=== PATIENT | male | born 1965 | race Caucasian/White ===

== ENCOUNTER 2019-04-19 05:49 | Day surgery (SDC) | payer BC ==
[2019-04-18 11:40] VITALS: BMI 32.3
[2019-04-19] MEDS ORDERED: Midazolam HCl 2 mg/2 ml Vial ONE (06:37)
[2019-04-19] MEDS ORDERED: Fentanyl 100 MCG/2 ML VIAL ONE ×2 (06:37→07:12)
[2019-04-19] MEDS ORDERED: Lidocaine 1% (PF) 30 ML VIAL ONE (06:37)
[2019-04-19 06:42] LABS: #Basophils 0.1 thou/uL (0.0-0.2); #Eosinphils 0.5 thou/uL (0.0-0.7); #Lymphocytes 2.1 thou/uL (1.20-3.40); #Monocytes 0.7 thou/uL (0.11-0.59); #Neutrophils 3.8 thou/uL (1.40-6.50); %Basophils 1.6 % (0.0-1.0); %Eosinophils 6.7 % (0.0-10.0); %Lymphocytes 29.3 % (21.0-51.0); %Monocytes 9.9 % (0.0-10.0); %Neutrophils 52.6 % (42.0-75.0); Hemoglobin 14.8 g/dL (14.0-18.0); Mean Corpuscular HGB CONC 33.9 g/dL (32.0-36.0); Mean Corpuscular Hemoglobin 32.4 pg (27.0-31.0); Mean Corpuscular Volume 95.6 fL (78.0-98.0); Mean Platelet Volume 7.8 fL (7.4-10.4); Platelet Count 217 thou/uL (130-400); RBC Distribution Width 12.1 % (11.5-14.5); Red Blood Cell (RBC) Count 4.56 mill/uL (4.70-6.10); White Blood Cell (WBC) Count 7.2 thou/uL (4.8-10.8)
[2019-04-19] MEDS ORDERED: Lidocaine 1% w/Epinephrine 1:100K 20 ML VIAL ONE (06:54)
[2019-04-19 06:55] LABS: Anion Gap 11 mmol/L (10-20); BUN (Urea Nitrogen) 20 mg/dL (8.4-25.7); Calc. Creatinine Clearance 142 mL/min (70-130); Calcium 9.3 mg/dL (7.8-10.44); Carbon Dioxide 24 mmol/L (22-29); Chloride 109 mmol/L (98-107); Estimated GFR-MDRD Greater than 90; Glucose 109 mg/dL (70-105); Sodium 140 mmol/L (136-145)
[2019-04-19] MEDS ORDERED: HYDROmorphone 0.5 MG/0.5 ML SYRINGE ONE (07:12)
[2019-04-19] MEDS ORDERED: Acetaminophen 325 MG TAB PO PRN (07:21)
[2019-04-19] MEDS ORDERED: Promethazine HCl 25 MG/ML VIAL IM PRN (07:21)
[2019-04-19] MEDS ORDERED: Ropivacaine 0.2% 550 ML 550 ML NERVE BLCK SCH (07:21)
[2019-04-19] MEDS ORDERED: Zolpidem Tartrate 5 MG TAB PO PRN (07:21)
[2019-04-19] MEDS ORDERED: HYDROcodone/Acetaminophen 10/325 mg Tablet PO PRN ×2 (07:21)
[2019-04-19] MEDS ORDERED: Ondansetron PF 4 MG/2 ML Vial IVP PRN (07:21)
[2019-04-19] MEDS ORDERED: traMADol HCl 50 MG TAB PO PRN ×2 (07:21)
[2019-04-19] MEDS ORDERED: Fentanyl 100 MCG/2 ML VIAL IV PRN (07:23)
[2019-04-19] MEDS ORDERED: Glycopyrrolate 0.2 MG/ML 5 ML SYRINGE ONE (09:57)
[2019-04-19] MEDS ORDERED: Ropivacaine 0.5% HCl/PF (150 MG/30 ML VIAL) ONE (09:57)
[2019-04-19] MEDS ORDERED: PROPOFOL 200 MG/20 ML VIAL ONE (09:57)
[2019-04-19] MEDS ORDERED: Lidocaine 1% PF 5 ML VIAL ONE (09:57)
[2019-04-19] MEDS ORDERED: Ondansetron PF 4 MG/2 ML Vial ONE (09:57)
[2019-04-19] MEDS ORDERED: Ropivacaine 0.2% HCl/PF (40 MG/20 ML VIAL) ONE (09:57)
[2019-04-19] MEDS ORDERED: EPHEDRINE 25 MG/5 ML SYRINGE ONE (09:57)
[2019-04-19] MEDS ORDERED: Rocuronium Bromide 10 MG/ML (10ML VIAL) ONE (09:57)
[2019-04-19] MEDS ORDERED: Ketorolac Tromethamine 30 MG/ML VIAL ONE (09:57)
[2019-04-19] MEDS ORDERED: Dexamethasone 20 MG/5 ML VIAL ONE (09:57)
--- NOTE | 2019-04-19 10:02 | OP ---
DATE OF PROCEDURE: 04/19/2019 PREOPERATIVE DIAGNOSES: Right shoulder impingement and rotator cuff tear and biceps tendon tear. POSTOPERATIVE DIAGNOSES: Right shoulder impingement and rotator cuff tear and biceps tendon tear. PROCEDURES PERFORMED: 1. Right shoulder arthroscopy with subacromial decompression. 2. Arthroscopic rotator cuff repair. 3. Open biceps tenodesis. HISTOLOGIST: Daniel Harrington PA-C ESTIMATED BLOOD LOSS: Approximately 50 mL. COMPLICATIONS: None. ANESTHESIA: He had a general anesthetic. DISPOSITION: He went to recovery room in stable condition. IMPLANTS: Our implants, one triple-loaded Titanium rotator cuff anchor and a 7 x 23 BioComposite Bio-Tenodesis screw. INDICATIONS: This is a 53-year-old male, who comes in complaining of weakness and pain. MRI found him to have full-thickness tear and at this time, he opted to have this repaired. DESCRIPTION OF PROCEDURE: After all appropriate consent forms were explained and signed, he was taken back to the operating room and at this time was given general anesthetic. Once the level of anesthesia was appropriate, the patient was rolled into the left lateral decubitus position with all bony prominences well padded. Axillary roll was placed underneath the left axilla. The beanbag was inflated to hold this position. The arm was taken through full range of motion and then held with an arthroscopic esqueda with 15 pounds in standard fashion. At this time, the right shoulder and upper extremity was prepped and draped in standard surgical fashion. Bony anatomical landmarks were drawn out and the subacromial space was infiltrated with Marcaine with epinephrine. Posterior portal was established. Scope was placed into the shoulder joint. Anterior working portal was then made using a needle localization technique. Diagnostic arthroscopy commenced. Biceps tendon was found to be torn. Rotator cuff was found to be torn. Subscapularis was intact. There were no loose bodies in the axillary pouch. Articular surfaces of the humeral head and glenoid were in good condition and the labrum overall was in good condition. At this time, an 18-gauge needle was used to place the stitch through the biceps and the biceps was cut off its insertion with the SERFAS energy. SERFAS energy was also used to coagulate some significant synovitis between the superior labrum and the cuff superiorly. At this time, we then repositioned our scope into the subacromial space. Lateral working portal was made. A little bit of bursa was there and this was removed. This gave us access to the rotator cuff tear. PassPort cannula was placed lateral. We then placed one triple-loaded Titanium anchor into the bone as we felt a single row would suffice on the small tear. At this time, the Scorpion device was used to place 2 simple stitches and one mattress stitch posteriorly for the repair. These were then tied sequentially. All these knots were cut. At this time, we then removed the scope, drained the shoulder. We then made our incision for open biceps tenodesis. The skin was cut with a 15 blade. Bovie was used to coagulate any brisk venous bleeding. Deltoid fascia was opened sharply. Finger dissection was used in line with the fibers to get down to the underlying bicipital groove. Transverse humeral ligament was opened up. Biceps tendon was pulled out into the wound. All brisk venous bleeding was coagulated. The biceps tendon was sewed. The intra-articular portion was removed. We then placed our wire, reamed with a 7.5 reamer to a depth of 25 and placed our 7 x 23 BioComposite Bio-Tenodesis screw. Sutures were tied over top of this as the screw could not back out. At this time, the wound was then thoroughly irrigated and dried. The deltoid fascia was closed with Vicryl, 2-0 Vicryl and stitches were used to close this incision as well as our portals. Bulky sterile dressing was applied. The patient was awakened, taken to the recovery room in stable condition. All counts were correct at the end of the case and he did receive preoperative IV antibiotics. Job ID: [id number]
[2019-04-19] MEDS ORDERED: Ketorolac Tromethamine 30 MG/ML VIAL IVP SCH (12:00)
== END 2019-04-19 12:10 | disposition home or self-care (01) ==
LOC: EEVIPCON 05:49 → SDC 05:49
PROVIDERS: ATTEND Orthopaedic Surgery
PROC: 0LS14ZZ Reposition Right Shoulder Tendon, Percutaneous Endoscopic Approach (ICD-10-PCS; principal; 2019-04-19)
PROC: 0LQ14ZZ Repair Right Shoulder Tendon, Percutaneous Endoscopic Approach (ICD-10-PCS; principal; 2019-04-19)
PROC: 0RNJ4ZZ Release Right Shoulder Joint, Percutaneous Endoscopic Approach (ICD-10-PCS; principal; 2019-04-19)
DX: M75.121 Complete rotator cuff tear or rupture of right shoulder, not specified as traumatic (principal); M75.41 Impingement syndrome of right shoulder; S46.111A Strain of muscle, fascia and tendon of long head of biceps, right arm, initial encounter; Z98.890 Other specified postprocedural states; Z79.899 Other long term (current) drug therapy
CPT/HCPCS: 80048; 85025; A4306; C1713; J0690; J1100; J1170; J1885; J2001; J2250; J2405; J2704; J2795; J3010

== ENCOUNTER 2021-07-30 16:13 | Inpatient (IN) | payer OTHER, BC ==
[~2021-07-30 16:13] MED LIST: Iopamidol-370 76% 500 ML 1 ML ONE
[2021-07-30] MEDS ORDERED: Fentanyl 100 MCG/2 ML VIAL ONE (16:25)
[2021-07-30] MEDS ORDERED: Ondansetron PF 4 MG/2 ML Vial ONE (16:25)
[2021-07-30 17:02] LABS: #Basophils 0.1 thou/uL (0.0-0.2); #Lymphocytes 1.6 thou/uL (1.20-3.40); #Neutrophils 11.1 thou/uL (1.40-6.50); %Basophils 0.6 % (0.0-1.0); %Eosinophils 0.3 % (0.0-10.0); %Lymphocytes 11.3 % (21.0-51.0); %Monocytes 7.3 % (0.0-10.0); %Neutrophils 80.5 % (42.0-75.0); Hemoglobin 14.8 g/dL (14.0-18.0); Mean Corpuscular HGB CONC 32.5 g/dL (32.0-36.0); Mean Corpuscular Hemoglobin 31.4 pg (27.0-31.0); Mean Corpuscular Volume 96.7 fL (78.0-98.0); Mean Platelet Volume 8.7 fL (7.4-10.4); Platelet Count 209 thou/uL (130-400); RBC Distribution Width 12.4 % (11.5-14.5); Red Blood Cell (RBC) Count 4.71 mill/uL (4.70-6.10); White Blood Cell (WBC) Count 13.8 thou/uL (4.8-10.8)
[2021-07-30 17:13] LABS: Prothrombin Time 13.5 sec (12.0-14.7)
[2021-07-30 17:14] LABS: PTT 22.2 sec (22.9-36.1)
[2021-07-30 17:30] LABS: ALT (SGPT) 20 U/L (8-55); AST (SGOT) 16 U/L (5-34); Albumin 4.1 g/dL (3.5-5.0); Alkaline Phosphatase 52 U/L (40-110); Anion Gap 16 mmol/L (10-20); BUN (Urea Nitrogen) 26 mg/dL (8.4-25.7); Bilirubin, Total 0.5 mg/dL (0.2-1.2); Calc. Creatinine Clearance 0 mL/min (70-130); Calcium 9.5 mg/dL (7.8-10.44); Carbon Dioxide 21 mmol/L (22-29); Chloride 111 mmol/L (98-107); Globulin 2.9 g/dL (2.4-3.5); Glucose 193 mg/dL (70-105); Potassium 3.8 mmol/L (3.5-5.1); Sodium 144 mmol/L (136-145)
[2021-07-30] MEDS ORDERED: Morphine 4 MG/ML VIAL ONE ×2 (17:36→19:07)
[2021-07-30] MEDS ORDERED: Ondansetron PF 4 MG/2 ML Vial IVP PRN (19:14)
[2021-07-30] MEDS ORDERED: Dextrose 50% Abboject 50 ML SYRINGE SLOW IVP PRN (19:14)
[2021-07-30] MEDS ORDERED: Dextrose 5% in Water 1,000 ML IV PRN (19:14)
[2021-07-30] MEDS ORDERED: Morphine 4 MG/ML VIAL SLOW IVP PRN (19:14)
[2021-07-30] MEDS ORDERED: hydrALAZINE 20 MG/ML VIAL SLOW IVP PRN (19:14)
[2021-07-30] MEDS ORDERED: traMADol HCl 50 MG TAB PO PRN (19:20)
[2021-07-30] MEDS ORDERED: Famotidine 20 MG TAB PO SCH (21:00)
[2021-07-30] MEDS: Lactated Ringer's 1,000 ML IV SCH (21:00)
[2021-07-30] MEDS ORDERED: CEFAZOLIN 2 GM in Sodium Chloride 0.9% 100 ML IVPB SCH (21:15)
[2021-07-30] MEDS: Ibuprofen 200 MG TAB PO SCH (21:43)
[2021-07-30] MEDS: Acetaminophen 500 MG TAB PO SCH (21:44)
[2021-07-30] MEDS: Gabapentin 300 MG CAP PO SCH (21:45)
[2021-07-30] MEDS: traMADol HCl 50 MG TAB PO SCH (21:45)
[2021-07-30] MEDS: Cyclobenzaprine 10 MG TAB PO PRN (21:46)
[2021-07-30 22:41] VITALS: BMI 33.1
[2021-07-31 01:23] LABS: SARS-CoV-2 NAA Rapid Test Not Detected (NotDetected)
[2021-07-31] MEDS: Lactated Ringer's 1,000 ML IV SCH ×2 (02:53→07:32)
[2021-07-31] MEDS: Acetaminophen 500 MG TAB PO SCH ×4 (02:53→20:39)
[2021-07-31] MEDS: traMADol HCl 50 MG TAB PO SCH ×4 (02:54→20:38)
[2021-07-31] MEDS: Ibuprofen 200 MG TAB PO SCH ×4 (02:55→20:36)
[2021-07-31 06:18] LABS: #Lymphocytes 1.9 thou/uL (1.20-3.40); #Monocytes 1.1 thou/uL (0.11-0.59); #Neutrophils 6.8 thou/uL (1.40-6.50); %Basophils 0.3 % (0.0-1.0); %Eosinophils 0.4 % (0.0-10.0); %Monocytes 11.5 % (0.0-10.0); %Neutrophils 68.8 % (42.0-75.0); Hemoglobin 11.4 g/dL (14.0-18.0); Mean Corpuscular HGB CONC 32.4 g/dL (32.0-36.0); Mean Corpuscular Hemoglobin 32.1 pg (27.0-31.0); Mean Corpuscular Volume 99.1 fL (78.0-98.0); Mean Platelet Volume 8.3 fL (7.4-10.4); Platelet Count 146 thou/uL (130-400); RBC Distribution Width 12.5 % (11.5-14.5); Red Blood Cell (RBC) Count 3.54 mill/uL (4.70-6.10); White Blood Cell (WBC) Count 9.9 thou/uL (4.8-10.8)
[2021-07-31 06:40] LABS: Anion Gap 11 mmol/L (10-20); BUN (Urea Nitrogen) 18 mg/dL (8.4-25.7); Calc. Creatinine Clearance 138 mL/min (70-130); Carbon Dioxide 25 mmol/L (22-29); Chloride 109 mmol/L (98-107); Glucose 102 mg/dL (70-105); Magnesium 2.2 mg/dL (1.6-2.6); Phosphorus 4.1 mg/dL (2.3-4.7); Potassium 3.6 mmol/L (3.5-5.1); Sodium 141 mmol/L (136-145)
[2021-07-31] MEDS: Gabapentin 300 MG CAP PO SCH ×3 (07:24→20:38)
[2021-07-31] MEDS ORDERED: HYDROmorphone 2 MG/ML VIAL ONE ×2 (07:32→11:28)
[2021-07-31] MEDS ORDERED: fentaNYL Citrate/PF 100 MCG/2 ML SYRINGE ONE (07:36)
[2021-07-31] MEDS ORDERED: Sodium Chloride 0.9% 100 ML ONE (07:54)
[2021-07-31] MEDS ORDERED: CEFAZOLIN 2 GM VIAL ONE (07:54)
[2021-07-31] MEDS ORDERED: SUGAMMADEX SODIUM 200 MG/2 ML VIAL ONE (08:22)
[2021-07-31] MEDS ORDERED: PROPOFOL 200 MG/20 ML VIAL ONE (08:25)
[2021-07-31] MEDS ORDERED: Lidocaine 1% PF 5 ML VIAL ONE (08:25)
[2021-07-31] MEDS ORDERED: PHENYLEPHRINE-NS 100 MCG/ML 10 ML SYRINGE ONE (08:25)
[2021-07-31] MEDS ORDERED: ePHEDrine 50 MG/ML VIAL ONE (08:25)
[2021-07-31] MEDS ORDERED: Glycopyrrolate 0.2 MG/ML 5 ML SYRINGE ONE (08:25)
[2021-07-31] MEDS ORDERED: Vecuronium 10 MG VIAL ONE (08:25)
[2021-07-31] MEDS ORDERED: Rocuronium Bromide 10 MG/ML (10ML VIAL) ONE (08:25)
[2021-07-31] MEDS ORDERED: Ketorolac Tromethamine 30 MG/ML VIAL ONE (08:25)
[2021-07-31] MEDS ORDERED: Ondansetron PF 4 MG/2 ML Vial ONE (08:25)
[2021-07-31] MEDS ORDERED: Dexamethasone 20 MG/5 ML VIAL ONE (08:25)
[2021-07-31] MEDS ORDERED: Famotidine 20 MG TAB PO SCH (09:00)
[2021-07-31] MEDS ORDERED: Fentanyl 100 MCG/2 ML VIAL ONE (12:02)
[2021-07-31] MEDS ORDERED: Non-Formulary Medication 1 EACH PO PRN (12:14)
[2021-07-31] MEDS ORDERED: HYDROmorphone 2 MG/ML VIAL SLOW IVP PRN (12:15)
[2021-07-31] MEDS ORDERED: Ondansetron HCl/PF 4 MG/2 ML Vial IVP PRN (12:15)
[2021-07-31] MEDS ORDERED: Promethazine HCl 25 MG/ML VIAL IM/IV PRN (12:15)
[2021-07-31] MEDS: CEFAZOLIN 2 GM in Sodium Chloride 0.9% 100 ML IVPB SCH ×2 (13:45→22:02)
[2021-07-31] MEDS: Enoxaparin Sodium 40 MG/0.4 ML SYRINGE SC SCH (20:35)
[2021-07-31] MEDS: Famotidine 20 MG TAB PO SCH (20:36)
[2021-08-01] MEDS: Acetaminophen 500 MG TAB PO SCH ×4 (03:42→20:05)
[2021-08-01] MEDS: Ibuprofen 200 MG TAB PO SCH ×4 (03:43→20:05)
[2021-08-01] MEDS: traMADol HCl 50 MG TAB PO SCH ×4 (03:44→20:03)
[2021-08-01] MEDS: CEFAZOLIN 2 GM in Sodium Chloride 0.9% 100 ML IVPB SCH (05:03)
[2021-08-01 07:16] LABS: #Lymphocytes 2.1 thou/uL (1.20-3.40); #Neutrophils 6.5 thou/uL (1.40-6.50); %Basophils 0.3 % (0.0-1.0); %Eosinophils 0.3 % (0.0-10.0); %Lymphocytes 21.4 % (21.0-51.0); %Monocytes 10.6 % (0.0-10.0); %Neutrophils 67.4 % (42.0-75.0); Hemoglobin 9.5 g/dL (14.0-18.0); Mean Corpuscular HGB CONC 32.2 g/dL (32.0-36.0); Mean Corpuscular Hemoglobin 31.9 pg (27.0-31.0); Mean Corpuscular Volume 99.1 fL (78.0-98.0); Mean Platelet Volume 8.7 fL (7.4-10.4); Platelet Count 137 thou/uL (130-400); RBC Distribution Width 12.3 % (11.5-14.5); Red Blood Cell (RBC) Count 2.96 mill/uL (4.70-6.10); White Blood Cell (WBC) Count 9.7 thou/uL (4.8-10.8)
[2021-08-01] MEDS: Famotidine 20 MG TAB PO SCH ×2 (08:29→20:03)
[2021-08-01] MEDS: Gabapentin 300 MG CAP PO SCH ×3 (08:30→20:03)
[2021-08-01] MEDS ORDERED: Senokot S 8.6-50 MG TAB PO SCH ×2 (09:30→21:00)
[2021-08-01] MEDS ORDERED: Polyethylene Glycol 3350 17 GM Packet PO SCH (09:30)
[2021-08-01] MEDS: Enoxaparin Sodium 40 MG/0.4 ML SYRINGE SC SCH (20:01)
[2021-08-01] MEDS: Cyclobenzaprine 10 MG TAB PO PRN (20:02)
[2021-08-01] MEDS: Senokot S 8.6-50 MG TAB PO SCH ×2 (23:52→23:53)
[2021-08-02] MEDS: traMADol HCl 50 MG TAB PO SCH ×2 (01:17→08:15)
[2021-08-02] MEDS: Ibuprofen 200 MG TAB PO SCH ×2 (01:17→08:16)
[2021-08-02] MEDS: Acetaminophen 500 MG TAB PO SCH ×2 (01:18→08:14)
[2021-08-02 05:40] LABS: #Basophils 0.1 thou/uL (0.0-0.2); #Eosinphils 0.2 thou/uL (0.0-0.7); #Lymphocytes 2.4 thou/uL (1.20-3.40); #Monocytes 0.9 thou/uL (0.11-0.59); #Neutrophils 5.1 thou/uL (1.40-6.50); %Basophils 0.9 % (0.0-1.0); %Lymphocytes 27.9 % (21.0-51.0); %Monocytes 10.4 % (0.0-10.0); %Neutrophils 58.8 % (42.0-75.0); Hemoglobin 8.4 g/dL (14.0-18.0); Mean Corpuscular HGB CONC 32.7 g/dL (32.0-36.0); Mean Corpuscular Hemoglobin 32.5 pg (27.0-31.0); Mean Corpuscular Volume 99.5 fL (78.0-98.0); Mean Platelet Volume 8.4 fL (7.4-10.4); Platelet Count 135 thou/uL (130-400); RBC Distribution Width 12.1 % (11.5-14.5); Red Blood Cell (RBC) Count 2.57 mill/uL (4.70-6.10); White Blood Cell (WBC) Count 8.6 thou/uL (4.8-10.8)
[2021-08-02] MEDS: Senokot S 8.6-50 MG TAB PO SCH (08:13)
[2021-08-02] MEDS: Famotidine 20 MG TAB PO SCH (08:14)
[2021-08-02] MEDS: Gabapentin 300 MG CAP PO SCH (08:14)
[2021-08-02] MEDS ORDERED: Polyethylene Glycol 3350 17 GM Packet PO SCH (09:00)
[2021-08-02 11:59] VITALS: BP 143/71; TEMP 98.2
== END 2021-08-02 12:00 | disposition home or self-care (01) | DRG 481 ==
LOC: ERS 16:13 → SURG A 19:20
PROVIDERS: ADMIT Surgery; ATTEND Surgery
PROC: 0QS704Z Reposition Left Upper Femur with Internal Fixation Device, Open Approach (ICD-10-PCS; principal; 2021-07-31)
DX: S72.142A Displaced intertrochanteric fracture of left femur, initial encounter for closed fracture (principal); N17.9 Acute kidney failure, unspecified; S82.55XA Nondisplaced fracture of medial malleolus of left tibia, initial encounter for closed fracture; F17.210 Nicotine dependence, cigarettes, uncomplicated; I10 Essential (primary) hypertension; Z20.822 Contact with and (suspected) exposure to COVID-19; V80.010A Animal-rider injured by fall from or being thrown from horse in noncollision accident, initial encounter; Z72.89 Other problems related to lifestyle; Z98.890 Other specified postprocedural states
CPT/HCPCS: 36415; 70450; 71045; 71260; 72125; 72170; 74177; 76000; 80048; 80053; 83735; 84100; 85025; 85610; 85730; 86850; 86900; 86901; 93005; C1713; C1776; J0690; J1100; J1170; J1650; J1885; J2270; J2405; J2704; J3010; J3490; J7120; Q9967; U0002

== ENCOUNTER 2023-12-10 14:04 | Emergency (ER) | payer BC ==
[2023-12-10 14:55] LABS: #Basophils 0.07 10x3/uL (0.0-0.2); %Basophils 0.5 % (0.0-1.0); %Eosinophils 0.3 % (0.0-10.0); %Lymphocytes 8.4 % (21.0-51.0); %Monocytes 6.7 % (0.0-10.0); %Neutrophils 83.6 % (42.0-75.0); Hematocrit 45.8 % (42.0-52.0); Hemoglobin 15.1 g/dL (14.0-18.0); Mean Corpuscular Hemoglobin 30.9 pg (27.0-31.0); Mean Corpuscular Volume 93.7 fL (78.0-98.0); Mean Platelet Volume 10.5 fL (7.4-10.4); Platelet Count 192 10x3/uL (130-400); RBC Distribution Width 13.2 % (11.5-14.5); Red Blood Cell (RBC) Count 4.89 mill/uL (4.70-6.10)
[2023-12-10 15:12] LABS: ALT (SGPT) 27 U/L (8-55); AST (SGOT) 20 U/L (5-34); Albumin 3.5 g/dL (3.5-5.0); Alkaline Phosphatase 57 U/L (40-110); Anion Gap 16 mmol/L (10-20); BUN (Urea Nitrogen) 14 mg/dL (8.4-25.7); Bilirubin, Total 0.3 mg/dL (0.2-1.2); Calc. Creatinine Clearance 0 mL/min (70-130); Calcium 9.8 mg/dL (7.8-10.44); Carbon Dioxide 20 mmol/L (22-29); Chloride 106 mmol/L (98-107); Estimated GFR 97; Globulin 4.3 g/dL (2.4-3.5); Glucose 109 mg/dL (70-105); Potassium 4.6 mmol/L (3.5-5.1); Protein, Total 7.8 g/dL (6.0-8.3); Sodium 137 mmol/L (136-145)
== END 2023-12-10 16:26 | disposition home or self-care (01) ==
LOC: ERS 14:04
DX: L03.116 Cellulitis of left lower limb (principal)
CPT/HCPCS: 36415; 80053; 85025; 85379